=== PATIENT | male | born 1945 | race Caucasian/White ===

== ENCOUNTER 2018-02-11 06:22 | Inpatient (IN) ==
[2018-02-08 15:42] LABS: Appearance,Urine HAZY; Bilirubin,Urine NEG (NEG); Color,Urine YELLOW; Glucose,Urine (UA) NEGATIVE (NEG); Leukocyte Esterase,Urine NEG /uL (NEG); Protein,Urine NEG (NEG); Specific Gravity,Urine 1.028 (1.000-1.035); Urine Blood NEG mg/dL (<0.03); Urobilinogen,Urine NEG (NEG)
[2018-02-08 16:02] LABS: ALT/SGPT 24 U/l (0-40); Albumin 4.2 gm/dL (3.2-5.2); Albumin/Globulin Ratio 1.6 (1.0-2.3); Alkaline Phosphatase 62 U/L (39-117); Blood Urea Nitrogen 22 mg/dl (8-23)
[2018-02-08 16:21] LABS: Basophils # (Auto) 0 K/mcL (0.0-0.3); Basophils % (Auto) 0.5 % (0.0-2.0); Eosinophils # (Auto) 0.3 K/mcL (0.0-0.7); Eosinophils % (Auto) 5.5 % (0.0-7.0); Granulocytes % (Auto) 50.7 % (38.0-78.0); Lymphocytes # (Auto) 1.3 K/mcL (1.5-4.8); Mean Corpuscular HGB Conc 34.7 g/dL (31.0-36.0); Mean Corpuscular Hemoglobin 32.6 pg (26.0-34.0); Monocytes # (Auto) 0.7 K/mcL (0.1-0.9); Monocytes % (Auto) 14.3 % (1.0-12.0); Platelet Count 222 K/mcL (140-440); RBC 4.04 M/mcL (4.50-5.90); Red Cell Distribution Width 13.4 % (11.5-14.5)
[~2018-02-11 06:22] MED LIST: ceFAZolin 1 GM VIAL IV SCH
[2018-02-11] MEDS ORDERED: KETOROLAC 30 MG, ROPIVACAINE HCL/PF 49.5 ML, EPINEPHrine 0.5 MG, 0.9 % SODIUM CHLORIDE ... IJ SCH (06:30)
[2018-02-11] MEDS ORDERED: KETAMINE 100 MG/ML ML IV ONE (10:55)
[2018-02-11] MEDS ORDERED: GLYCOPYRROLATE 0.2 MG/ML VIAL IV ONE (10:55)
[2018-02-11] MEDS ORDERED: PROPOFOL 200 MG/20 ML VIAL IV ONE (10:55)
[2018-02-11] MEDS ORDERED: ONDANSETRON 4 MG/2 ML VIAL IV ONE (10:55)
[2018-02-11] MEDS ORDERED: DEXAMETHASONE 10 MG/ML VIAL IV ONE (10:55)
[2018-02-11] MEDS ORDERED: TRANEXAMIC ACID 1,000 MG/10 ML VIAL IV ONE ×2 (10:55→12:46)
[2018-02-11] MEDS ORDERED: LIDOCAINE HCL/PF 100 MG/5 ML SYRINGE IV ONE (10:55)
[2018-02-11] MEDS ORDERED: ROPIVACAINE HCL/PF 20 ML VIAL IJ ONE (10:55)
[2018-02-11] MEDS ORDERED: MIDAZOLAM 5 MG/5 ML VIAL IV ONE (10:55)
[2018-02-11] MEDS ORDERED: GENTAMICIN SULFATE 800 MG/20 ML VIAL IR ONE (11:31)
[2018-02-11] MEDS ORDERED: MEPERIDINE 25 MG/ML SYRINGE IV PRN (11:47)
[2018-02-11] MEDS ORDERED: PROMETHAZINE 25 MG/ML VIAL IV PRN (11:47)
[2018-02-11] MEDS ORDERED: IPRATROPIUM/ALBUTEROL 3 ML AMPUL.NEB NEB PRN (11:47)
[2018-02-11] MEDS ORDERED: ACETAMINOPHEN 1,000 MG/100 ML BOTTLE IV ONE (11:47)
[2018-02-11] MEDS ORDERED: METHOCARBAMOL 1,000 MG/10 ML VIAL IV PRN (11:47)
[2018-02-11] MEDS ORDERED: ONDANSETRON 4 MG/2 ML VIAL IV PRN ×2 (11:47→12:46)
[2018-02-11] MEDS ORDERED: fentaNYL 100 MCG/2 ML VIAL IV PRN (11:47)
[2018-02-11] MEDS ORDERED: LACTATED RINGERS 1,000 ML IV SCH (12:00)
[2018-02-11] MEDS ORDERED: MEPERIDINE 50 MG/ML INJECTION IV PRN (12:45)
--- NOTE | 2018-02-11 12:45 | Brief Operative Note ---
Date of procedure: 02/11/18 Pre-op diagnosis: R knee arthrosis Post-op diagnosis: same Procedure: R total knee Grafts/Implants: Yes (depuy) Anesthesia: GETA, regional Complications: none Surgeon: Jeffery Pat Rehab Therapist: Alejandrina Roach Estimated blood loss (cc): 50 Condition: stable Disposition: PACU
[2018-02-11] MEDS ORDERED: POLYETHYLENE GLYCOL 3350 17 GM PACKET PO PRN (12:46)
[2018-02-11] MEDS ORDERED: BENZOCAINE/MENTHOL 1 LOZENGE PO PRN (12:46)
[2018-02-11] MEDS ORDERED: FLEETS ADULT ENEMA PR PRN (12:46)
[2018-02-11] MEDS ORDERED: METHOCARBAMOL 750 MG TABLET PO PRN (12:46)
[2018-02-11] MEDS ORDERED: BISACODYL 10 MG SUPP.RECT PR PRN (12:46)
[2018-02-11] MEDS ORDERED: MAGNESIUM HYDROXIDE 30 ML ORAL.SUSP PO PRN (12:46)
[2018-02-11] MEDS: 0.9 % SODIUM CHLORIDE 10 ML SYRINGE IV SCH ×2 (14:33→21:37)
--- NOTE | 2018-02-11 15:28 | XRay Report ---
CLINICAL INFORMATION: Postop total knee COMPARISON: None. FINDINGS: Total knee prostheses is anatomically aligned. No osseous abnormality. Small effusion noted IMPRESSION: Negative Interpreted and Authenticated by: Parag Allen 02/11/18
[2018-02-11] MEDS: 0.9 % SODIUM CHLORIDE 1,000 ML IV SCH (15:56)
[2018-02-11] MEDS: oxyCODONE/APAP 5/325MG TABLET PO PRN ×2 (16:24→20:19)
[2018-02-11] MEDS: ceFAZolin 1 GM VIAL IV SCH (19:10)
[2018-02-11] MEDS: DOCUSATE SODIUM 100 MG CAPSULE PO SCH (20:18)
[2018-02-11] MEDS: ASPIRIN 325 MG ENTERIC COATED TABLET PO SCH (20:18)
[2018-02-11] MEDS ORDERED: PROPRANOLOL 20 MG TABLET PO SCH (21:00)
[2018-02-11] MEDS ORDERED: clonazePAM 0.5 MG TABLET PO SCH (21:00)
[2018-02-11] MEDS ORDERED: PRAZOSIN 5 MG CAPSULE PO SCH (21:00)
[2018-02-11] MEDS ORDERED: SENNOSIDES 1 TABLET PO SCH (21:00)
[2018-02-11] MEDS ORDERED: clonazePAM 1 MG TABLET ONE (23:23)
[2018-02-11] MEDS ORDERED: PANTOPRAZOLE 40 MG TABLET ONE (23:23)
[2018-02-11] MEDS ORDERED: PRAZOSIN 1 MG CAPSULE PO ONE (23:25)
[2018-02-11] MEDS: VENLAFAXINE 75 MG TABLET PO SCH (23:35)
[2018-02-12] MEDS: 0.9 % SODIUM CHLORIDE 1,000 ML IV SCH ×2 (00:58→09:35)
[2018-02-12] MEDS: PANTOPRAZOLE 40 MG TABLET PO SCH ×3 (00:58→16:14)
[2018-02-12] MEDS: oxyCODONE/APAP 5/325MG TABLET PO PRN ×4 (03:40→17:20)
[2018-02-12] MEDS: ceFAZolin 1 GM VIAL IV SCH (03:40)
[2018-02-12] MEDS: 0.9 % SODIUM CHLORIDE 10 ML SYRINGE IV SCH ×2 (04:45→13:18)
--- NOTE | 2018-02-12 07:20 | Operative Note ---
DATE OF OPERATION: 02/11/2018 PREOPERATIVE DIAGNOSIS: Right knee arthrosis. POSTOPERATIVE DIAGNOSIS: Right knee arthrosis. OPERATION PROPOSED: Right total knee arthroplasty. OPERATING SURGEON: Jeffery Pat MD CENTRAL SERVICES TECH: Alejandrina Roach PA-C INDICATIONS: This is a gentleman who has had advanced knee arthrosis. He has had debilitating pain and has failed conservative measures. OPERATION IN DETAIL: Informed consent was obtained. He was taken to the operating room. He was provided with appropriate anesthetic and prophylactic antibiotics. He was carefully positioned. His knee was prepped sterilely. A midline incision was made. I dissected down to expose the extensor mechanism. Standard medial parapatellar approach was performed. I then removed osteophytes. He had a very hypertrophied amount of synovium in the knee and some of this was debrided. I then entered the distal femur and proximal tibia with a reamer. The ACL was removed. I placed a distal femoral cutting block and performed a distal femoral cut. I then exposed the tibia, removed the menisci and performed my proximal tibial cut. I then used the sizing blocks selected as size 5 poly. I then did a balanced resection for my distal femur. The block was pinned. I performed the anterior, posterior and chamfer cuts. Pegs were reamed. I then prepped the proximal tibia. I sized the distal femur at a size 8 and the proximal tibia a 7. I placed trial components and it seemed to have a very excellent range of motion with good stability in both flexion and extension. The patellar resection was performed and I then placed a patellar button. The patella tracked quite nicely. I prepped the bony surfaces. The methacrylate was mixed and I cemented in place a size 38 patellar button, a size 7 tibial component and a size 8 femur. The wounds were irrigated extensively and I closed over a deep drain with an 0 Vicryl in interrupted fashion. A running Stratafix was used in the quad tendon and we closed the skin with 2-0 inverted deep dermal, and ceci. The procedure was tolerated well. No complications. Estimated blood loss is 50 mL. GDD:saima Job ID: [id number] Doc ID: [id number] Jeffery Pat MD
--- NOTE | 2018-02-12 07:30 | Orthopedic Progress Note ---
Subjective Patient information: Note initiated : 02/12/18 at 7:28 am Service Date, if different from initiated Date: [] Patient: Rodriguez Myles 72 y/o M admitted on 02/11/18 for Right Total Knee Arthroscopy . Chief Complaint: [S/P Rt TKA] Patient is doing well and has no complains. Denies any lower extremity weakness , SOA, or calf tenderness. Objective Vital signs: Vital Signs Temp Pulse Resp BP Pulse Ox 02/12/18 04:00 97.7 F 70 12 133/71 94 02/11/18 23:54 97.7 F 71 12 122/71 94 02/11/18 20:00 98.3 F 81 12 146/67 94 02/11/18 16:30 158/97 98 02/11/18 16:02 151/81 95 02/11/18 15:02 151/99 98 02/11/18 14:32 157/92 96 02/11/18 14:02 152/77 96 02/11/18 14:00 54 L 14 95 02/11/18 13:40 97.8 F 59 L 12 143/73 97 02/11/18 13:25 59 L 11 L 127/67 100 02/11/18 13:09 97.6 F 67 11 L 153/87 98 02/11/18 07:55 59 L 20 95 Intake and Output 02/11/18 02/12/18 02/12/18 21:59 05:59 13:59 Intake Total 420 / 420 400 / 400 Output Total 1000 / 1000 270 / 270 Balance -580 / -580 130 / 130 Intake: Oral 420 / 420 400 / 400 Output: Drainage 145 / 145 Right Knee Hemovac 145 / 145 Urine Catheter Amount 1000 / 1000 Uretheral (Montes) 1000 / 1000 Void Amount 125 / 125 Other: Meal Tuna sandwich, applesauce Percent of Meal Consumed 50% Feeding Ability Independent Weight 236 lb Intake & Output: Intake & Output 02/11/18 02/12/18 02/12/18 21:59 05:59 13:59 Intake Total 420 / 420 400 / 400 Output Total 1000 / 1000 270 / 270 Balance -580 / -580 130 / 130 Weight 236 lb Intake: Oral 420 / 420 400 / 400 Output: Drainage 145 / 145 Right Knee Hemovac 145 / 145 Urine Catheter Amount 1000 / 1000 Uretheral (Montes) 1000 / 1000 Void Amount 125 / 125 Other: Meal Tuna sandwich, applesauce Percent of Meal Consumed 50% Feeding Ability Independent Incision: Yes healing, Yes clean and dry Incision clean and dry: Yes Dressing: Yes clean, Yes dry, Yes intact Weight bearing status: as tolerated Neurological exam IM: Yes neurovascular intact Additional Comments: Negative Donnell's, no calf tenderness bilaterally - Labs CBC & BMP: 02/12/18 04:30 02/08/18 13:36 Labs: Orthopedic Labs 02/12/18 02/08/18 04:30 13:37 PT 13.9 13.0 INR 1.1 1.0 02/12/18 02/08/18 04:30 13:37 Hgb 12.5 L 13.2 L Hct 36.2 L 38.0 L Assessment and Plan (1) S/P total knee arthroplasty Continue PT. Aspirin 325 mg BID X30 days at discharge. D/c drain prior to discharge. Dress wound with aquacel prior to discharge. May discharge today if pain is well controlled. Status: Acute
--- NOTE | 2018-02-12 07:41 | Discharge Summary ---
Ortho Discharge - TKA - Patient Instructions Diet: Regular Diet Activity: activity as tolerated Total Knee Protocol: For Total Knee: Start ROM ASA with stationary bike or rocking chair. Work on gaining full extension of knee. Posterior dislocation precautions provided. Hip abductor strengthening and gait training instructions provided. Apply Cryocuff as instructed. Dressing Care: May shower in 2 days, Aquacel Ag - leave on for 5 days - Problem Maintenance (1) S/P total knee arthroplasty Status: Acute - Follow Up Plan Disposition: Home, Self-Care Prognosis: Good Rehab Potential: Good I certify that the patient requires SNF services: No Overall status at discharge: patient is back to baseline - Orders For Discharge Prescriptions: Aspirin [Ecotrin] 325 mg PO BID #60 tab.ec HYDROcodone/APAP 10/325MG [[place] 10-325Mg] 1 - 2 tab PO Q4-6HP PRN #60 tab PRN Reason: Pain
[2018-02-12] MEDS: VENLAFAXINE 75 MG TABLET PO SCH ×2 (08:20→08:30)
[2018-02-12] MEDS: ASPIRIN 325 MG ENTERIC COATED TABLET PO SCH (08:20)
[2018-02-12] MEDS: DOCUSATE SODIUM 100 MG CAPSULE PO SCH (08:20)
[2018-02-12] MEDS ORDERED: ceFAZolin 1 GM VIAL IV ONE (16:00)
[2018-02-12] MEDS ORDERED: PROPRANOLOL 10 MG TABLET PO SCH (21:00)
[2018-02-12] MEDS ORDERED: PRAZOSIN 1 MG CAPSULE PO SCH (21:00)
== END 2018-02-12 17:25 | disposition home or self-care (01) | DRG 470 ==
LOC: MEDSUR 06:22 → EDSTATUS 08:30
PROVIDERS: ADMIT Orthopaedic Surgery Orthopaedic Surgery of the Spine; ATTEND Orthopaedic Surgery Orthopaedic Surgery of the Spine